=== PATIENT | female | born 1960 | race Two or more races ===

== ENCOUNTER 2018-03-05 08:53 | Outpatient (CLI) | payer OTHER | END 2018-03-05 09:02 | disposition home or self-care (01) | LOC: RAD 501 08:53 | DX: M25.562 Pain in left knee (principal) ==

== ENCOUNTER → 2018-03-05 | Outpatient (CLI) | payer OTHER | END | disposition home or self-care (01) | LOC: LAB 13:03 | DX: M12.262 Villonodular synovitis (pigmented), left knee (principal) ==

== ENCOUNTER → 2018-03-20 | Outpatient (CLI) | payer OTHER | END | disposition home or self-care (01) | LOC: NUCLEAR 12:44 | DX: I87.2 Venous insufficiency (chronic) (peripheral) (principal) ==